=== PATIENT | female | born 1960 | race Caucasian/White ===

== ENCOUNTER 2018-01-24 08:07 | Day surgery (SDC) | payer OTHER ==
[~2018-01-24 08:07] MED LIST: AMITRIPTYLINE H75 MG PO; CITALOPRAM HBR40 MG PO; CLONAZEPAM0.5 MG PO; GABAPENTIN300 MG PO; LISINOPRIL20 MG PO; NORFLEX PO
== END 2018-01-24 16:45 | disposition home or self-care (01) ==
LOC: CIR.AMB 08:07
DX: N84.0 Polyp of corpus uteri (principal)